=== PATIENT | male | born 1980 | race Caucasian/White ===

== ENCOUNTER → 2019-09-14 | Outpatient (REF) | payer BC ==
[2019-09-14 13:04] LABS: AMORPHOUS SEDIMENT MODERATE (NEGATIVE); BACTERIA, URINE AUTO NEGATIVE (NEGATIVE); MUCUS, URINE MODERATE (NEGATIVE); RBC, URINE AUTO 0 /HPF (0-3); SQUAMOUS EPITHELIAL CELL UR AU 0 /HPF (0-6); WBC, URINE AUTO 2 /HPF (0-3)
== END ==
LOC: M LAB REF 12:20
PROVIDERS: ATTEND Family Medicine
DX: R31.0 Gross hematuria (principal)

== ENCOUNTER → 2019-10-10 | Outpatient (REF) | payer BC ==
[2019-10-10 13:34] LABS: APPEARANCE, URINE CLEAR (CLEAR); BACTERIA, URINE AUTO NEGATIVE (NEGATIVE); BILIRUBIN, URINE AUTO NEGATIVE (NEGATIVE); BLOOD, URINE BLOOD NEGATIVE (NEGATIVE); COLOR, URINE YELLOW (YELLOW); GLUCOSE, URINE (UA) AUTO NEGATIVE (NEGATIVE); KETONE, URINE AUTO NEGATIVE (NEGATIVE); LEUKOCYTE ESTERASE, URINE AUTO NEGATIVE (NEGATIVE); NITRITE, URINE AUTO NEGATIVE (NEGATIVE); PROTEIN, URINE AUTO NEGATIVE (NEGATIVE); RBC, URINE AUTO 0 /HPF (0-3); SPECIFIC GRAVITY URINE AUTO 1.023 (1.002-1.035); SQUAMOUS EPITHELIAL CELL UR AU 0 /HPF (0-6); UROBILINOGEN, URINE AUTO 0.2 mg/dL (0.0-2.0); WBC, URINE AUTO 1 /HPF (0-3)
== END ==
LOC: M SMT 12:49
PROVIDERS: ATTEND Nurse Practitioner Women's Health
DX: R31.9 Hematuria, unspecified (principal)

== ENCOUNTER → 2019-10-12 | Outpatient (CLI) | payer BC ==
[~2019-10-12] MED LIST: ISOVUE-370 76% 100ML VIAL (Q9967) As Ordered ONE
--- NOTE | 2019-10-12 16:33 | REP ---
HISTORY: Hematuria. CONTRAST: 100 mL [id number] The lung bases are clear. The precontrast enhanced portion of the examination shows hepatic and splenic densities to be within normal limits. There is no nephroureterolithiasis, hydronephrosis or hydroureter. There are no urinary bladder calcifications. There are no choleliths. The contrast enhanced portion of the examination shows the liver, gallbladder, spleen, pancreas, adrenal glands and kidneys to be within normal limits. The abdominal aorta and periaortic regions are within normal limits. There is no free fluid or free air. The bowel loops and their mesenteries are within normal limits. CT PELVIS: The bowel loops and their mesenteries are within normal limits. There is no mass or adenopathy. There is no free fluid or free air. Bone window technique throughout the examination shows the osseous structures to be within normal limits. CT urogram shows incomplete opacification of the renal collecting system bilaterally including the ureters. Delayed imaging through the urinary bladder shows no evidence of an abnormal filling defect. There does appear to be a duplex collecting system on the right, but difficult to evaluate due to poor contrast opacification. IMPRESSION: There is no evidence of acute disease. Findings and limitations as described above. Electronically Signed by Benito Issa DO 10/12/2019 05:06 P
== END ==
LOC: M RAD 14:36
PROVIDERS: ATTEND Nurse Practitioner Women's Health
DX: R31.9 Hematuria, unspecified (principal)
CPT/HCPCS: 74178; Q9967